=== PATIENT | male | born 1980 | race American Indian/Alaskan Native ===

== ENCOUNTER 2019-03-30 18:23 | Emergency (ER) | payer OTHER, SELFPAY ==
[2019-03-30 18:24] VITALS: BP 147/76; PULSE 64; RESP 15; TEMP 36.7; O2SAT 97; BMI 27.1
--- NOTE | 2019-03-30 19:59 | US_ITS ---
STUDY: SCROTUM ULTRASOUND REASON FOR EXAM: Male, 38 years old. Right testicular pain, left palpable lump TECHNIQUE: Ultrasound evaluation of the scrotum was performed with color Doppler and static teresa-scale imaging. COMPARISON: None. FINDINGS: RIGHT TESTICLE INTRATESTICULAR: There is a normal size of the right testicle. The right testicle measures 4.6 x 3.8 x 2.8 cm. There is a homogenous echotexture. There is normal arterial and normal venous vascularity. There is no demonstrated right testicular mass or cyst. EXTRATESTICULAR: The epididymis is normal in size. The epididymis head measures 1.4 x 0.9 x 0.8 cm. There is normal vascularity of the epididymis. There is no demonstrated epididymal cystic structure. There is a small hydrocele. There is no demonstrated varicocele. There is no demonstrated extratesticular mass or cyst. LEFT TESTICLE INTRATESTICULAR: There is a normal size of the left testicle. The left testicle measures 4.9 x 3.1 x 2.0 cm. There is a homogenous echotexture. There is normal arterial and normal venous vascularity. There is no demonstrated left testicular mass or cyst. EXTRATESTICULAR: The epididymis head measures 1.4 x 1.2 x 1.0 cm.An epididymis cyst is present measuring 9 x 9 x 8 mm. There is a moderate size hydrocele. There is no demonstrated varicocele. An ill-defined solid low echogenicity lesion is present below the left testicle. This has a nodular component measuring 9 x 7 mm transverse. It is associated with increased vascularity. This is most likely related to epididymitis of the tail of the left epididymis. Consider follow-up ultrasound exam after epididymitis treatment/resolution. US/Testicular with Arterial Flow IMPRESSION: Ultrasound findings suspicious for epididymitis involving the tail of the left epididymis as described. Follow-up ultrasound after epididymitis treatment/resolution is recommended. Moderate left and mild right sided intrascrotal hydroceles. No evidence of intratesticular pathology. Electronically Signed: Jaziel Buckner MD at 20:58 EDT Tel , Service support ,
[2019-03-30 20:04] LABS: Bacteria 0 SEEN /hpf (None Seen); Mucous, Urine 0 SEEN /hpf (<or=2+); Red Blood Cells-Urine 0 SEEN /hpf (0-5); Squamous Epithelial Cells - UA 0 SEEN /hpf (0-5); White Blood Cells 0 SEEN /hpf (0-5)
[2019-03-30 20:05] LABS: Color, Urine Yellow (Yellow); Glucose, Dipstick Normal (Normal); Ketone-Dipstick Negative (Negative); Leukocyte Esterase-Dipstick Negative /ul (Negative); Nitrite-Dipstick Negative (Negative); Occult Blood-Urine Negative /ul (Negative); Protein-Dipstick Negative (Negative); Specific Gravity, Urine 1.005 (1.002-1.030); Urine Bilirubin Dipstick Negative (Negative); Urine Clarity Clear (Clear); Urine Urobilinogen Normal (Normal)
--- NOTE | 2019-03-30 21:36 | ED.DCSUM_ITS ---
- ER Visit Summary Date of Service: 03/30/19 Chief Complaint: Testicular pain History of Present Illness: The patient is a 38 M resents with testicular pain. Patient states that he was in [place] and last Saturday woke with a small amount of blood on his bed and what he describes as little bit of urethral discharge. He was seen by a physician in [place] and felt that this was an STD. They placed him on amoxicillin which he has been taking. He states that yesterday he developed pain in the left testicle with a lump and now has right testicular pain. He states he has not been sexually active. He has a non-smoker. He denies any dysuria. Denies any current drainage from the penis. Physical Examination: Afebrile vital signs stable Gen: Well-nourished well-developed Head: Normocephalic atraumatic Eyes: Perrl EOMI ENT: TMs clear no rhinorrhea moist mucous membranes Neck: Supple no lymphadenopathy no JVD nontender CVS: Regular rate rhythm no murmurs normal S1-S2 Respiratory: No distress clear to auscultation bilaterally chest nontender Abdomen: Soft nontender nondistended normal bowel sounds no masses : Left scrotal shows tenderness and swelling of the epididymis. Right scrotal exam demonstrates tenderness of the epididymis but no significant swelling. No obvious hernia. Significant lesions or lymph nodes felt. Back: Nontender Extremity: Nontender no edema Skin: Normal color no rash Neuro: alert orientated ?3 CN II-XII intact normal strength sensation reflexes gait cerebellar Psych: Normal affect normal mood Test Results: Urinalysis is negative. Ultrasound is consistent with an epididymitis. Emergency Department Course and Treatment: Patient has had a negative gonorrhea and chlamydial test. I will start him on Levaquin suggest scrotal support anti- inflammatories and I will write for a few Medora. I advised him to please follow-up with urology. Impression: 1. Epididymitis This note was generated with [employer] dictation software. It may contain incorrect words, spelling, and punctuation that were not noted in review of the chart prior to signing ED Disposition - Plan for ED Patient: Disposition: Home or Assisted Living Instructions: Epididymitis Prescriptions: Levofloxacin [Levaquin] 500 mg PO DAILY #9 tab Prescription Printed Ibuprofen [Motrin] 800 mg PO TID PRN PRN #20 tab PRN Reason: Pain Prescription Printed Hydrocodone Bitart/Apap 5-325 [Medora 5MG-325MG] 1 tab PO Q6H PRN PRN 3 Days #10 tab PRN Reason: Pain Prescription Printed Referrals: Talon Guerrero MD [STAFF PHYSICIAN] - 1 Week
[2019-03-30 21:44] VITALS: BP 127/91; PULSE 55; RESP 17; O2SAT 97
[2019-03-30] MEDS: levoFLOXacin 500 MG Tablet PO (21:44)
== END 2019-03-30 21:48 | disposition home or self-care (01) ==
PROVIDERS: Emergency Provider Emergency Medicine; Family Provider Family Medicine; PCP Family Medicine
DX: N45.1 Epididymitis (principal); J45.909 Unspecified asthma, uncomplicated; Z79.899 Other long term (current) drug therapy
CPT/HCPCS: 76870; 81001; 93976; 99283

== ENCOUNTER 2019-11-04 00:44 | Emergency (ER) | payer OTHER, SELFPAY ==
[2019-11-04 00:45] VITALS: BP 135/83; PULSE 68; RESP 15; TEMP 36.2; O2SAT 96; BMI 28.8
--- NOTE | 2019-11-04 00:56 | CT_ITS ---
STUDY: CT ABDOMEN AND PELVIS WITH CONTRAST REASON FOR EXAM: Male, 39 years old. RLQ PAIN SINCE 1500, BLOATED AND FULL, HERNIA REPAIR AT AGE 5 RADIATION DOSAGE (If Supplied By Facility): CTDIvol = ( 16.91 ) mGy, DLP = ( 1157.58 ) mGycm TECHNIQUE: Transaxial images were obtained from the dome of the diaphragm to the symphysis pubis without oral contrast. IV 75mL Isovue-370 was administered. Sagittal and coronal images were reconstructed. Individualized dose optimization techniques were used for this CT. COMPARISON: None. FINDINGS: Atelectasis/scarring within the lungs. The visualized portions of the heart are within normal limits. There is decreased attenuation of the liver consistent with steatosis. Hepatomegaly. Normal gallbladder and extrahepatic biliary system. Splenomegaly 13.5 cm. Normal pancreas. Normal bilateral adrenal glands. Normal right kidney. Normal left kidney. Normal visualized stomach. Normal small intestine. Normal colon. The appendix is visualized and appears normal. Normal abdominal aorta. Normal inferior vena cava. Nonspecific subcentimeter short axis mesenteric lymph nodes. Normal urinary bladder. Normal abdominal wall. There are diffuse degenerative changes of the visualized lumbar spine. Moderate L5-S1 posterior disc osteophyte complex. There is severe neural foraminal narrowing bilaterally L5-S1. Mild to moderate spinal canal narrowing. CT/Abdomen/Pelvis W IV Cont ONLY IMPRESSION: Hepatosplenomegaly. Hepatic steatosis. No CT evidence for acute diverticulitis or appendicitis. Degenerative changes greatest at L5-S1. Nonspecific subcentimeter short axis mesenteric lymph nodes. May be reactive/mesenteric adenitis in the appropriate clinical setting. There is no CT evidence for bowel dilatation. Next Other findings as discussed above. Electronically Signed: Sammy Sanabria, at 2:38 EST Tel , Service support ,
[2019-11-04 01:07] LABS: Absolute Lymphocyte Count 3.38 X10^3/uL (0.83-4.51); Absolute Neutrophil Count 4.5 X10^3/uL (2.0-7.7); Basophil# 0.06 X10^3/uL; Basophil% 0.7 % (0-1); Eosinophil# 0.36 X10^3/uL; Lymphocyte # 3.38 X10^3/ul (4.0); Lymphocyte % 37.2 % (19-41); Mean Corp Hgb Conc 35.7 g/dL (32-36); Mean Corpuscular Hgb 31.1 pg (27.0-32.0); Mean Corpuscular Volume 87.1 fL (80-94); Mean Platelet Vol. 10.2 fl (6.2-12.0); Monocyte# 0.74 X10^3/uL; Monocyte% 8.1 % (0-10); NRBC Flagged by Analyzer 0 % (0-5); Neutrophil % 49.4 % (47-70); Platelet Count 276 K/mm3 (150-450); RBC Distribution Width SD 38.1 fl (35.1-43.9); Red Blood Count 4.82 M/mm3 (4.6-6.2); White Blood Count 9.1 K/mm3 (4.4-11.0)
--- NOTE | 2019-11-04 01:07 | ED.VIS.GI ---
History of Present Illness Chief Complaint: Abd Pain Narrative: Patient presenting for evaluation secondary to abdominal pain. Patient reports that at about 3 PM he had a relatively sudden onset of right lower quadrant abdominal pain. He states that it is a sharp stabbing type pain that is worse with palpation movement and walking. Patient states that it was preceded by feelings of anorexia throughout the day, but he denies any fevers nausea vomiting diarrhea dysuria. Patient has a past history of a inguinal hernia repair in the distant past, and feels that potentially he may have some bulging in his right groin, but this pain was not associated with any sort of lifting twisting pushing pulling or increased intra-abdominal pressure. Review of systems otherwise negative. Past Medical History - Allergies and Home Meds Allergies/Adverse Reactions: Allergies No Known Allergies Allergy (Verified 11/04/19 00:45) Primary Care Physician: Martin Braxton MD [Primary Care Provider] - Past Medical History: None Surgical History: - - Hernia surgery Smoking Status: Never smoker Review of Systems All systems negative except as indicated General: Reports: - - Anorexia and 5 pound weight gain over the course of the last 3 months Eyes: Denies: Visual changes - bilaterally, Diplopia ENT: Denies: Rhinorrhea, Sore throat Cardiovascular: Denies: Chest pain, Palpitations Respiratory: Denies: Dyspnea, Cough, Dyspnea on exertion Gastrointestinal: Reports: Abdominal pain Genitourinary: Denies: Dysuria, Hematuria, Frequency Musculoskeletal: Denies: Back pain, Extremity Pain Skin: Denies: Rash, Wounds Neurological: Denies: Headache, Weakness, Numbness Physical Exam Vital Signs/Narrative: Vital Signs Temp Pulse Resp BP Pulse Ox 11/04/19 00:45 97.2 F L 68 15 135/83 H 96 Inital Vital Signs reviewed: Yes General: Well nourished, Well developed, No Acute Distress Head: Normocephalic, Atraumatic Eyes: Perrl, EOMI ENT: Moist mucous membranes, No rhinorrhea Neck: Supple, Nontender Cardiovascular: Regular rate, Regular rhythm, No murmurs Respiratory: No distress, CTA bilaterally, Chest nontender Abdomen: Soft, Nondistended, Normal bowel sounds, Tender - Tenderness is noted in the right lower quadrant with minimal voluntary guarding with deep palpation, no rebound tenderness, positive Rovsing sign. Examination of the patient's right inguinal canal does show some mild bulging with Valsalva, but no obvious palpable masses or incarcerated hernia. Back: Nontender, Normal Inspection Extremities: Nontender, No edema Skin: Normal color, No rash Neurological: Alert, Oriented x3, Cranial nerves II-XII grossly intact, Normal Strength, Normal Sensation Psychological: Normal affect, Normal Mood Diagnostic/Tx/Re-eval - Medical Decision Making Patient presented for evaluation due to right lower quadrant abdominal pain. There is only some concern for the possibility of appendicitis work-up was obtained. Patient declined analgesia in the emergency department. CBC and chemistry unremarkable, urinalysis shows no signs of infection. CT abdomen and pelvis per radiology shows some evidence of hepatic steatosis and mesenteric adenitis. No evidence of other acute pathology. Patient's work-up is benign, he has a nonsurgical abdomen, I do not feel that he requires admission or further work-up at this time. He was given reassurance. Patient is traveling out of the country a week from today, I did recommend that he follow-up with general surgery should he not start to see improvement in the next 3 days. He will be provided with general surgery on-call. All questions were answered and the patient was discharged. Patient did request that I refill his asthma medications including albuterol Singulair and Advair, this will be provided for the patient. ED Disposition - Plan for ED Patient: Disposition: Home or Assisted Living Diagnosis: Mesenteric adenitis Instructions: Adenitis, Mesenteric Prescriptions: Fluticasone/Salmeterol [Advair 500-50 Diskus] 1 ea IH DAILY 30 Days #1 blst.w.[email or web address] Prescription Printed Montelukast [Singulair] 10 mg PO DAILY #30 tab Prescription Printed Albuterol Inhaler [Ventolin Hfa] 1 - 2 puff INHALATION Q4H PRN PRN #1 inhaler PRN Reason: Wheezing Prescription Printed Referrals: Schuyler Anglin MD [STAFF PHYSICIAN] - 3-5 Days if not improving
[2019-11-04 01:22] LABS: Anion Gap 6 (5-15); BUN 20 mg/dL (7-18); BUN/Creat Ratio 17.4 RATIO (10-20); Calcium,Total 9.1 mg/dL (8.5-10.1); Chloride 106 mmol/L (98-107); Creatinine, Serum 1.15 mg/dL (0.70-1.30); EST Glomerular Filtration Rate 76 mL/min (>60); Est Glom Filt Rate - Afr Amer 91 mL/min (>60); Estimated Creatinine Clearance 98.43 ml/min; Glucose 97 mg/dL (74-106); Potassium 3.7 mmol/L (3.5-5.1); Sodium Level 138 mmol/L (136-145)
[2019-11-04] MEDS: 0.9% Normal Saline 1,000 ML 125 ML IV (01:43)
[2019-11-04 01:50] LABS: Bacteria 0 SEEN /hpf (None Seen); Mucous, Urine 0 SEEN /hpf (<or=2+); Red Blood Cells-Urine 0 SEEN /hpf (0-5); Squamous Epithelial Cells - UA 0 SEEN /hpf (0-5); White Blood Cells 0 SEEN /hpf (0-5)
[2019-11-04 01:53] LABS: Color, Urine Straw (Yellow); Glucose, Dipstick Normal (Normal); Ketone-Dipstick Negative (Negative); Leukocyte Esterase-Dipstick Negative /ul (Negative); Nitrite-Dipstick Negative (Negative); Occult Blood-Urine Negative /ul (Negative); Protein-Dipstick Negative (Negative); Urine Bilirubin Dipstick Negative (Negative); Urine Clarity Clear (Clear); Urine Urobilinogen Normal (Normal); Urine pH 6.5 (5.0 - 8.0)
[2019-11-04 02:59] VITALS: RESP 14
== END 2019-11-04 03:00 | disposition home or self-care (01) ==
PROVIDERS: Emergency Provider Emergency Medicine; PCP Family Medicine
DX: I88.0 Nonspecific mesenteric lymphadenitis (principal)
CPT/HCPCS: 74177; 80048; 81001; 85025; 96360; 99283; J7030; Q9967; A4216